=== PATIENT | female | born 1980 ===

== ENCOUNTER 2022-01-06 06:48 | Day surgery (SDC) | payer OTHER ==
[~2022-01-06] VITALS: Ht 177.8 cm; Wt 70.2 kg
[~2022-01-06 06:48] MED LIST: CALCA500CH PO; IBUP800 PO; PREN-16 PO
--- NOTE | 2022-01-06 08:31 | NUR ---
01/06/22 0831 Lety Estrada 1 MG EPI ADDED TO EACH OF THE FIRST 3 BAGS OF LR FOR IRRIGATION PER ORDER.
== END 2022-01-06 10:05 | disposition home or self-care (01) ==
LOC: ORSCSDS 06:48
PROVIDERS: Orthopaedic Surgery
PROC: 0SQC4ZZ Repair Right Knee Joint, Percutaneous Endoscopic Approach (ICD-10-PCS; principal; 2022-01-06 08:00)
PROC: 0SBC4ZZ Excision of Right Knee Joint, Percutaneous Endoscopic Approach (ICD-10-PCS; principal; 2022-01-06 08:00)
DX: S83.241A Other tear of medial meniscus, current injury, right knee, initial encounter (principal); S83.281A Other tear of lateral meniscus, current injury, right knee, initial encounter; M94.261 Chondromalacia, right knee
CPT/HCPCS: J0171; J0690; J1100; J1885; J2250; J2405; J2704; J2795; J3010; J7120